=== PATIENT | male | born 1955 | race Caucasian/White ===

== ENCOUNTER 2018-07-10 09:48 | Day surgery (SDC) | payer MEDICARE ==
[2018-07-09 12:38] LABS: BASOPHILS % (AUTO) 0.4 % (0-1); EOSINOPHILS # (AUTO) 0.1 X10'3 (0-0.9); EOSINOPHILS % (AUTO) 2.1 % (0-6); HEMATOCRIT 47.8 % (42.0-52.0); HEMOGLOBIN 16.7 g/dl (14.0-17.9); LYMPHOCYTES # (AUTO) 1.7 X10'3 (1.1-4.8); LYMPHOCYTES % (AUTO) 26.4 % (21-51); MEAN CORPUSCULAR HEMOGLOBIN 31.2 PG (27.0-31.0); MEAN CORPUSCULAR HGB CONC 34.9 % (33.0-36.5); MEAN CORPUSCULAR VOLUME 89.5 FL (78-98); MEAN PLATELET VOLUME 7.6 FL (7.4-10.4); MONOCYTES # (AUTO) 0.5 X10'3 (0-0.9); MONOCYTES % (AUTO) 7.3 % (2-12); NEUTROPHILS % (AUTO) 63.8 % (42-75); PLATELET COUNT 195 X10'3 (140-440); RED BLOOD COUNT 5.34 X10'6 (4.70-6.10); RED CELL DISTRIBUTION WIDTH 13.6 % (11.5-14.5); WHITE BLOOD COUNT 6.3 X10'3 (4.5-11.0)
[2018-07-09 12:51] LABS: ALBUMIN 3.7 G/DL (3.4-5.0); ANION GAP 11 (8-16); BLOOD UREA NITROGEN 19 MG/DL (7-18); BUN/CREATININE RATIO 20.7 (5.4-32.0); CALCIUM 8.5 MG/DL (8.5-10.1); CHLORIDE 101 MMOL/L (99-107); CREATININE 0.92 MG/DL (0.60-1.10); GLUCOSE 340 MG/DL (70-104); POTASSIUM 4.2 MMOL/L (3.5-5.1); SODIUM 138 MMOL/L (135-145); TOTAL CARBON DIOXIDE 26.4 MMOL/L (24-32); eGFR 83 ML/MIN
[2018-07-09 13:02] LABS: INR 0.9 INR; PARTIAL THROMBOPLASTIN TIME 26 SECONDS (22-32); PROTHROMBIN TIME 9.7 SECONDS (9.0-12.0)
[~2018-07-10] VITALS: Ht 177.8 cm; Wt 96.6 kg
[2018-07-10] VITALS (16 sets, daily range): BP systolic 109–146; BP diastolic 45–71
[~2018-07-10 09:48] MED LIST: ASPI81TA30 PO; CLOP75TA35 PO; DOXA4TAB3 PO; EZET1TAB35 PO; INSU100C10 SQ; LANTUS SQ; LANTUS SUBCUT; METO-384 PO; RABE20TA28; RAMI10CA69 PO
[2018-07-10] MEDS ORDERED: diphenhydrAMINE 25mg capsule PO PRN (10:30)
[2018-07-10] MEDS ORDERED: LORazepam 0.5 MG tablet PO PRN (10:30)
[2018-07-10] MEDS ORDERED: NITR0.4T51 SL (11:47)
[2018-07-10] MEDS ORDERED: GABA-530 PO (11:47)
[2018-07-10] MEDS ORDERED: OMEG1CAP PO (11:47)
[2018-07-10] MEDS ORDERED: heparin 1,000unit/ml 10ml vial 10 ML ONE (13:17)
[2018-07-10] MEDS ORDERED: midazolam 2 mg/2 ml injection ONE (13:17)
[2018-07-10] MEDS ORDERED: fentaNYL/PF 50MCG/1 ML 2ML syringe ONE (13:17)
[2018-07-10] MEDS ORDERED: heparin 1,000 UNITS/NS 500ml 500 ML ONE ×2 (13:18)
[2018-07-10] MEDS ORDERED: iohexol 350 MG/ML 50ML vial IV ONE (13:18)
[2018-07-10] MEDS ORDERED: nitroGLYCERIN-Tridil 50MG/D5W 250 ML IV ONE (13:18)
[2018-07-10] MEDS ORDERED: iohexol 350MG/ML 100ml bottle IV ONE ×2 (13:18→15:58)
[2018-07-10] MEDS ORDERED: LIDOcaine 1% 30ml preserv. free vial ONE (14:31)
[2018-07-10] MEDS ORDERED: atropine 0.1mg/ml 10ml syringe ONE (16:10)
[2018-07-10] MEDS ORDERED: clopidogrel 300mg tablet ONE (16:56)
[2018-07-10] MEDS ORDERED: OXAZEpam 15mg capsule PO PRN (17:40)
[2018-07-10] MEDS ORDERED: cyclobenzaprine 10mg tablet PO PRN (17:40)
[2018-07-10] MEDS ORDERED: HYDROcodone/acetaminophen 10/325mg tab PO PRN (17:40)
[2018-07-10] MEDS ORDERED: proCHLORperazine 10 MG/2 ml inj IV PRN (17:40)
[2018-07-10] MEDS ORDERED: aspirin 81mg tab.chew PO ONE (17:40)
[2018-07-10] MEDS ORDERED: magnesium hydroxide 30ml (MOM) UD suspension PO PRN (17:40)
[2018-07-10] MEDS ORDERED: acetaminophen 325mg tablet PO PRN (17:40)
[2018-07-10] MEDS: HYDROcodone/acetaminophen 10/325mg tab PO PRN (17:57)
[2018-07-10] MEDS: normal saline 1000ml 1,000 ML IV SCH ×2 (18:49→22:28)
[2018-07-10] MEDS ORDERED: nitroGLYCERIN 0.4mg SUBLingual tab SL PRN (20:50)
[2018-07-10] MEDS ORDERED: insulin glargine (Lantus) pen - multi-dose SQ SCH (21:00)
[2018-07-10] MEDS ORDERED: metoprolol succinate 25mg (24-HOUR) SR. Tablet PO SCH (21:00)
[2018-07-10] MEDS ORDERED: lisinopril 20mg tablet PO SCH (21:00)
[2018-07-10] MEDS ORDERED: pantoprazole 40mg Tablet.DR PO SCH (21:00)
[2018-07-10] MEDS ORDERED: doxazosin mesylate 2mg tablet PO SCH (21:00)
[2018-07-10] MEDS ORDERED: ezetimibe 10mg tablet PO SCH (21:00)
[2018-07-10] MEDS ORDERED: atorvastatin 20mg tablet PO SCH (21:00)
[2018-07-10 21:52] LABS: BASOPHILS % (AUTO) 0.4 % (0-1); EOSINOPHILS # (AUTO) 0.2 X10'3 (0-0.9); EOSINOPHILS % (AUTO) 2.1 % (0-6); LYMPHOCYTES # (AUTO) 1.8 X10'3 (1.1-4.8); LYMPHOCYTES % (AUTO) 22.5 % (21-51); MEAN CORPUSCULAR HEMOGLOBIN 30.8 PG (27.0-31.0); MEAN CORPUSCULAR HGB CONC 33.9 % (33.0-36.5); MEAN CORPUSCULAR VOLUME 90.7 FL (78-98); MEAN PLATELET VOLUME 7.4 FL (7.4-10.4); MONOCYTES # (AUTO) 0.5 X10'3 (0-0.9); MONOCYTES % (AUTO) 6.4 % (2-12); NEUTROPHILS # (AUTO) 5.5 X10'3 (1.8-7.7); NEUTROPHILS % (AUTO) 68.6 % (42-75); PRE OP HEMATOCRIT 46.5 % (42.0-52.0); PRE OP HEMOGLOBIN 15.8 g/dL (14.0-17.9); PRE OP PLATELET COUNT 165 X10'3 (140-440); RED BLOOD COUNT 5.13 X10'6 (4.70-6.10); RED CELL DISTRIBUTION WIDTH 14.1 % (11.5-14.5)
[2018-07-10 22:08] LABS: ALBUMIN 3.3 G/DL (3.4-5.0); ANION GAP 11 (8-16); BLOOD UREA NITROGEN 18 MG/DL (7-18); BUN/CREATININE RATIO 20.5 (5.4-32.0); CALCIUM 7.9 MG/DL (8.5-10.1); CHLORIDE 103 MMOL/L (99-107); CREATININE 0.88 MG/DL (0.60-1.10); GLUCOSE 345 MG/DL (70-104); POTASSIUM 4.3 MMOL/L (3.5-5.1); SODIUM 137 MMOL/L (135-145); TOTAL CARBON DIOXIDE 23.3 MMOL/L (24-32); eGFR 87 ML/MIN
[2018-07-10] MEDS: docusate sod 100mg capsule PO SCH (22:28)
[2018-07-10] MEDS: gabapentin 100mg capsule PO SCH (22:32)
[2018-07-11] VITALS: BP 130/64
[2018-07-11] MEDS: HYDROcodone/acetaminophen 10/325mg tab PO PRN (00:25)
[2018-07-11 01:00] VITALS: BP 133/65
[2018-07-11 02:00] VITALS: BP 115/55
[2018-07-11 06:00] VITALS: BP 117/62
[2018-07-11] MEDS ORDERED: ATOR20TA66 PO (06:47)
[2018-07-11] MEDS ORDERED: ASPI-1 PO (06:47)
[2018-07-11] MEDS ORDERED: insulin Lispro (HumaLOG) vial - multi-dose SQ SCH (07:00)
[2018-07-11 07:08] LABS: BASOPHILS % (AUTO) 0.4 % (0-1); EOSINOPHILS # (AUTO) 0.2 X10'3 (0-0.9); EOSINOPHILS % (AUTO) 2.7 % (0-6); HEMATOCRIT 47.4 % (42.0-52.0); HEMOGLOBIN 16.1 g/dl (14.0-17.9); LYMPHOCYTES # (AUTO) 1.9 X10'3 (1.1-4.8); LYMPHOCYTES % (AUTO) 23.7 % (21-51); MEAN CORPUSCULAR HEMOGLOBIN 30.7 PG (27.0-31.0); MEAN CORPUSCULAR VOLUME 90.3 FL (78-98); MEAN PLATELET VOLUME 7.5 FL (7.4-10.4); MONOCYTES # (AUTO) 0.7 X10'3 (0-0.9); MONOCYTES % (AUTO) 8.3 % (2-12); NEUTROPHILS # (AUTO) 5.1 X10'3 (1.8-7.7); NEUTROPHILS % (AUTO) 64.9 % (42-75); PLATELET COUNT 173 X10'3 (140-440); RED BLOOD COUNT 5.25 X10'6 (4.70-6.10); RED CELL DISTRIBUTION WIDTH 13.9 % (11.5-14.5); WHITE BLOOD COUNT 7.8 X10'3 (4.5-11.0)
[2018-07-11 07:37] LABS: ALANINE AMINOTRANSFERASE 40 U/L (12-78); ALBUMIN 3.4 G/DL (3.4-5.0); ALKALINE PHOSPHATASE 71 IU/L (46-116); ANION GAP 9 (8-16); ASPARTATE AMINO TRANSFERASE 19 U/L (10-37); BILIRUBIN,TOTAL 0.7 MG/DL (0.1-1.0); BLOOD UREA NITROGEN 15 MG/DL (7-18); BUN/CREATININE RATIO 18.3 (5.4-32.0); CALCIUM 8.1 MG/DL (8.5-10.1); CHLORIDE 105 MMOL/L (99-107); CREATININE 0.82 MG/DL (0.60-1.10); GLUCOSE 242 MG/DL (70-104); SODIUM 140 MMOL/L (135-145); TOTAL CARBON DIOXIDE 26.5 MMOL/L (24-32); TOTAL PROTEIN 6.7 G/DL (6.4-8.2); eGFR > 90 ML/MIN
[2018-07-11] MEDS ORDERED: aspirin 81mg tab.chew PO SCH (08:00)
[2018-07-11] MEDS ORDERED: aspirin 325mg tablet PO SCH (08:00)
[2018-07-11] MEDS ORDERED: omega-3 acid ethyl esters 1GM capsule PO SCH (08:00)
[2018-07-11] MEDS ORDERED: insulin glargine (Lantus) pen - multi-dose SQ SCH (08:00)
[2018-07-11] MEDS ORDERED: clopidogrel 75mg tablet PO SCH ×2 (08:00)
[2018-07-11] MEDS: docusate sod 100mg capsule PO SCH (08:15)
[2018-07-11] MEDS: gabapentin 100mg capsule PO SCH (08:15)
== END 2018-07-11 11:03 | disposition home or self-care (01) ==
LOC: SSTAY O 09:48 → PCU 3S 21:28 → SSTAY O 07-11 11:03
PROVIDERS: ATTEND Internal Medicine Cardiovascular Disease
DX: I25.118 Atherosclerotic heart disease of native coronary artery with other forms of angina pectoris (principal); E78.5 Hyperlipidemia, unspecified; I10 Essential (primary) hypertension; E66.9 Obesity, unspecified; K21.9 Gastro-esophageal reflux disease without esophagitis; F41.8 Other specified anxiety disorders; M81.0 Age-related osteoporosis without current pathological fracture; G47.33 Obstructive sleep apnea (adult) (pediatric); M19.90 Unspecified osteoarthritis, unspecified site; E10.9 Type 1 diabetes mellitus without complications; F10.10 Alcohol abuse, uncomplicated; Z79.01 Long term (current) use of anticoagulants; Z88.2 Allergy status to sulfonamides; Z87.891 Personal history of nicotine dependence; Z90.49 Acquired absence of other specified parts of digestive tract; Z68.30 Body mass index [BMI] 30.0-30.9, adult; Z79.4 Long term (current) use of insulin; Z79.891 Long term (current) use of opiate analgesic; Z95.5 Presence of coronary angioplasty implant and graft; Z79.82 Long term (current) use of aspirin; Z79.899 Other long term (current) drug therapy; Z98.890 Other specified postprocedural states; Z83.3 Family history of diabetes mellitus; Z82.49 Family history of ischemic heart disease and other diseases of the circulatory system
CPT/HCPCS: 36415; 80048; 80053; 82948; 85025; 85347; 85610; 85730; 87070; 93005; 93458; 99152; 99153; A6257; C1725; C1769; C1874; C9600; J1644; J2250; J3010; J3490; J7030; Q0163; Q9967; A4620; J0461; J1815

== ENCOUNTER 2018-12-02 13:58 | Inpatient (IN) | payer MEDICARE | END 2018-12-04 10:00 | disposition home or self-care (01) | LOC: MED 3N 12-04 04:48 → ER 13:58 → PCU 3S 12-03 09:05 → ED HOLD 15:44 → MED 3N 12-03 16:40 → SUR 3N 20:30 | PROC: 027034Z Dilation of Coronary Artery, One Artery with Drug-eluting Intraluminal Device, Percutaneous Approach (ICD-10-PCS; principal; ~2018-12-02) | PROC: 4A023N8 Measurement of Cardiac Sampling and Pressure, Bilateral, Percutaneous Approach (ICD-10-PCS; ~2018-12-02) | PROC: B215YZZ Fluoroscopy of Left Heart using Other Contrast (ICD-10-PCS; ~2018-12-02) | PROC: B211YZZ Fluoroscopy of Multiple Coronary Arteries using Other Contrast (ICD-10-PCS; ~2018-12-02) | PROC: B240ZZ3 Ultrasonography of Single Coronary Artery, Intravascular (ICD-10-PCS; ~2018-12-02) | DX: I25.110 Atherosclerotic heart disease of native coronary artery with unstable angina pectoris (principal); E11.9 Type 2 diabetes mellitus without complications; I10 Essential (primary) hypertension ==

== ENCOUNTER 2019-07-22 05:26 | Day surgery (SDC) | payer MEDICARE ==
[2019-07-21 16:11] LABS: ALBUMIN 3.7 G/DL (3.4-5.0); ANION GAP 8 (8-16); BLOOD UREA NITROGEN 16 MG/DL (7-18); BUN/CREATININE RATIO 16.5 (5.4-32.0); CHLORIDE 103 MMOL/L (99-107); CREATININE 0.97 MG/DL (0.60-1.10); GLUCOSE 397 MG/DL (70-104); POTASSIUM 4.4 MMOL/L (3.5-5.1); SODIUM 137 MMOL/L (135-145); TOTAL CARBON DIOXIDE 26.1 MMOL/L (24-32); eGFR 77 ML/MIN
[2019-07-21 16:21] LABS: PARTIAL THROMBOPLASTIN TIME 29 SECONDS (22-32)
[2019-07-21 17:08] LABS: BASOPHILS # (AUTO) 0.1 X10'3 (0-0.2); BASOPHILS % (AUTO) 0.9 % (0-1); EOSINOPHILS # (AUTO) 0.1 X10'3 (0-0.9); EOSINOPHILS % (AUTO) 1.7 % (0-6); HEMATOCRIT 45.3 % (42.0-52.0); HEMOGLOBIN 16.2 g/dl (14.0-17.9); LYMPHOCYTES # (AUTO) 1.7 X10'3 (1.1-4.8); LYMPHOCYTES % (AUTO) 25.9 % (21-51); MEAN CORPUSCULAR HEMOGLOBIN 31.3 PG (27.0-31.0); MEAN CORPUSCULAR HGB CONC 35.7 g/dL (33.0-36.5); MEAN CORPUSCULAR VOLUME 87.7 FL (78-98); MONOCYTES # (AUTO) 0.5 X10'3 (0-0.9); MONOCYTES % (AUTO) 8.3 % (2-12); NEUTROPHILS # (AUTO) 4.1 X10'3 (1.8-7.7); NEUTROPHILS % (AUTO) 63.2 % (42-75); PLATELET COUNT 163 X10'3 (140-440); RED BLOOD COUNT 5.17 X10'6 (4.70-6.10); RED CELL DISTRIBUTION WIDTH 13.8 % (11.5-14.5); WHITE BLOOD COUNT 6.6 X10'3 (4.5-11.0)
[~2019-07-22] VITALS: Ht 177.8 cm; Wt 96.0 kg
[2019-07-22] VITALS (12 sets, daily range): BP systolic 110–134; BP diastolic 56–67
[~2019-07-22 05:26] MED LIST changes: +ASPI-611 PO; -ASPI81TA30 PO; -CLOP75TA35 PO; +ISOS60TA4 PO; -LANTUS SUBCUT; +NITR0.4T51 SL; +OMEG1CAP PO; -RABE20TA28; +RABE20TA28 PO; +TICA90TA PO
[2019-07-22] MEDS ORDERED: normal saline 1,000 ML IV SCH (06:20)
[2019-07-22] MEDS ORDERED: diphenhydrAMINE 25mg capsule PO PRN (06:20)
[2019-07-22] MEDS ORDERED: LIDOcaine/PRILOcaine 5gm cream TP ONE (06:20)
[2019-07-22] MEDS ORDERED: LORazepam 0.5 MG tablet PO PRN (06:20)
[2019-07-22] MEDS ORDERED: OMEG1CAP PO (06:45)
[2019-07-22] MEDS ORDERED: SIMV80TA2 PO (06:45)
[2019-07-22] MEDS ORDERED: PRAS10TA6 PO (06:45)
[2019-07-22] MEDS ORDERED: RABE20TA18 PO (06:45)
[2019-07-22] MEDS ORDERED: FENO135C4 PO (06:45)
[2019-07-22] MEDS ORDERED: INSU100C10 SQ (06:45)
[2019-07-22] MEDS ORDERED: fentaNYL/PF 50MCG/1 ML 2ML syringe ONE (07:21)
[2019-07-22] MEDS ORDERED: LIDOcaine 1% (10mg/ml)w/preservative injection 20ml MDV ONE (07:21)
[2019-07-22] MEDS ORDERED: iohexol 350 MG/ML 50ML vial IV ONE (07:21)
[2019-07-22] MEDS ORDERED: iohexol 350MG/ML 100ml bottle IV ONE ×2 (07:21→08:25)
[2019-07-22] MEDS ORDERED: midazolam 2 mg/2 ml injection ONE (07:21)
[2019-07-22] MEDS ORDERED: heparin 1,000 UNITS/NS 500ml 500 ML ONE (07:22)
[2019-07-22] MEDS ORDERED: heparin 1,000unit/ml 10ml vial 10 ML ONE (07:29)
[2019-07-22] MEDS ORDERED: verapamil 2.5 mg/ml inj IV ONE (07:29)
[2019-07-22] MEDS ORDERED: nitroGLYCERIN-Tridil 50MG/D5W 250 ML IV ONE (07:30)
== END 2019-07-22 15:00 | disposition home or self-care (01) ==
LOC: SSTAY O 05:26
PROVIDERS: ATTEND Internal Medicine Cardiovascular Disease
DX: R94.39 Abnormal result of other cardiovascular function study (principal); I25.10 Atherosclerotic heart disease of native coronary artery without angina pectoris; E11.9 Type 2 diabetes mellitus without complications; I10 Essential (primary) hypertension; E78.5 Hyperlipidemia, unspecified; E11.22 Type 2 diabetes mellitus with diabetic chronic kidney disease; K21.9 Gastro-esophageal reflux disease without esophagitis; F41.9 Anxiety disorder, unspecified; M81.0 Age-related osteoporosis without current pathological fracture; G47.33 Obstructive sleep apnea (adult) (pediatric); Z79.4 Long term (current) use of insulin; Z95.5 Presence of coronary angioplasty implant and graft; Z79.899 Other long term (current) drug therapy; Z98.890 Other specified postprocedural states; Z88.2 Allergy status to sulfonamides; Z82.49 Family history of ischemic heart disease and other diseases of the circulatory system
CPT/HCPCS: 36415; 80048; 82948; 85025; 85610; 85730; 93005; 93458; C1769; C1894; J1644; J2001; J2250; J3010; J7030; Q0163; Q9967; A6258; J3490

== ENCOUNTER 2020-05-04 15:09 | Outpatient (CLI) | payer MEDICARE ==
[~2020-05-04 15:09] MED LIST changes: +FENO135C4 PO; +PRAS10TA6 PO; +RABE20TA18 PO; +SIMV80TA2 PO; -TICA90TA PO
== END 2020-05-04 23:59 | disposition home or self-care (01) ==
LOC: CARD DIAG 15:09
PROVIDERS: ATTEND Internal Medicine Cardiovascular Disease
DX: I08.0 Rheumatic disorders of both mitral and aortic valves (principal)
CPT/HCPCS: 93306